=== PATIENT | female | born 1945 | race Caucasian/White ===

== ENCOUNTER 2017-04-17 13:14 | Emergency (ER) | payer OTHER ==
[~2017-04-17] VITALS: Ht 157.5 cm; Wt 80.4 kg
[~2017-04-17 13:14] MED LIST: ASPIRIN81 M1 PO; BENICAR; CALCIUM; CALCIUM 600 MG1 EACH PO; CO Q-10100 MG PO; FERROUS SULFAT325 MG PO; FLUOXETINE HCL20 MG PO; FLUOXETINE PO; GLUCOPHAGE500 MG PO; LISINOPRIL40 MG PO; METFORMIN; MULTIPLE VITAM1 EAC1 PO; MULTIVITAMIN1 EAC1 PO; NEXIUM; NEXIUM20 MG PO; SIMVASTATIN; SIMVASTATIN20 MG PO; TRAMADOL HCL50 MG PO; TRAMADOL-ACETA1 EACH PO; VITAMIN D5000 UNIT PO
[2017-04-17 14:12] VITALS: BP 146/107
== END 2017-04-17 17:31 | disposition home or self-care (01) ==
LOC: EME 13:14
DX: S63.501A Unspecified sprain of right wrist, initial encounter (principal); W01.0XXA Fall on same level from slipping, tripping and stumbling without subsequent striking against object, initial encounter; E11.9 Type 2 diabetes mellitus without complications; Z79.84 Long term (current) use of oral hypoglycemic drugs; Z79.82 Long term (current) use of aspirin
CPT/HCPCS: 73110; 99281; 99284

== ENCOUNTER 2017-11-06 19:32 | Observation (INO) | payer OTHER ==
[~2017-11-06] VITALS: Ht 157.5 cm; Wt 82.9 kg
[2017-11-06 20:38] LABS: HEMOGLOBIN 12.4 G/DL (11.9-15.5); MCH 28.4 PG (29.0-34.0); MCHC 32.6 G/DL (30.0-36.0); MCV 87.2 FL (83-99); PLATELET COUNT 218 K/uL (156-360); RBC DIS.WIDTH-CV 13.3 % (11.8-14.6); RBC DIS.WIDTH-SD 42.1 % (39-53); RED BLOOD COUNT 4.36 M/uL (3.80-5.20); WHITE BLOOD COUNT 9.8 K/uL (4.1-10.2)
[2017-11-06 20:50] LABS: CHLORIDE 103 mEq/L (99-109); POTASSIUM 3.9 mEq/L (3.7-5.4); SODIUM 140 mEq/L (136-147)
[2017-11-06 20:51] LABS: GLUCOSE 134 mg/dL (70-99)
[2017-11-06 20:55] LABS: CREATININE 1.2 mg/dL (0.6-1.3); GFR ESTIMATE (CALCULATED) 47 mL/min/
[2017-11-06 20:56] LABS: UREA NITROGEN (BUN) 22 mg/dL (9-23)
[2017-11-06 20:59] LABS: TROP-I INTERPRETATION NEGATIVE; TROPONIN-I < 0.01 ng/mL (0.0-0.30)
[2017-11-07 00:40] LABS: TROP-I INTERPRETATION NEGATIVE; TROPONIN-I < 0.01 ng/mL (0.0-0.30)
[2017-11-07 06:22] LABS: TROP-I INTERPRETATION NEGATIVE; TROPONIN-I < 0.01 ng/mL (0.0-0.30)
[2017-11-07 06:50] LABS: Estimated Average Glucose 160 mg/dL (70-123); HEMOGLOBIN A1c (GLYCOHEMOGLOB) 7.2 % HGB (Below 5.7)
[2017-11-07 12:40] VITALS: BP 139/81
== END 2017-11-07 12:40 | disposition home or self-care (01) ==
LOC: EME 19:32 → EDOF 11-07 04:17 → ENRESERV 11-07 04:19 → CANRESERV 11-07 06:00 → ENRESERV 11-07 06:00 → EDOF 11-07 12:40
PROVIDERS: Emergency Medicine; Hospitalist
DX: R07.9 Chest pain, unspecified (principal); I10 Essential (primary) hypertension; E11.9 Type 2 diabetes mellitus without complications; F41.9 Anxiety disorder, unspecified; D35.00 Benign neoplasm of unspecified adrenal gland; R91.8 Other nonspecific abnormal finding of lung field; E78.5 Hyperlipidemia, unspecified; Z79.82 Long term (current) use of aspirin; Z79.84 Long term (current) use of oral hypoglycemic drugs; Z82.3 Family history of stroke; Z82.49 Family history of ischemic heart disease and other diseases of the circulatory system; Z90.710 Acquired absence of both cervix and uterus; Z91.040 Latex allergy status
CPT/HCPCS: 71046; 71275; 80048; 83036; 84484; 85027; 93005; 99281; 99285; G0378; J1815; J3010; J7030; J7512